=== PATIENT | female | born 1955 | race Caucasian/White ===

== ENCOUNTER → 2020-06-13 | Outpatient (CLI) | payer MEDICARE, BC | END | disposition home or self-care (01) | LOC: CFH 10:16 | PROVIDERS: ATTEND Nurse Practitioner | DX: M85.88 Other specified disorders of bone density and structure, other site (principal); N95.9 Unspecified menopausal and perimenopausal disorder | CPT/HCPCS: 77080 ==

== ENCOUNTER → 2020-06-20 | Outpatient (CLI) | payer MEDICARE, BC | END | disposition home or self-care (01) | LOC: CFH 13:47 | PROVIDERS: ATTEND Nurse Practitioner | DX: N63.20 Unspecified lump in the left breast, unspecified quadrant (principal) | CPT/HCPCS: 76642; 77066; G0279 ==

== ENCOUNTER → 2020-07-17 | Outpatient (CLI) | payer MEDICARE, BC | END | disposition home or self-care (01) | LOC: CFH 14:22 | PROVIDERS: ATTEND Internal Medicine Cardiovascular Disease | DX: Z13.6 Encounter for screening for cardiovascular disorders (principal); I10 Essential (primary) hypertension; E78.2 Mixed hyperlipidemia | CPT/HCPCS: 75571; 93306 ==

== ENCOUNTER → 2020-11-14 | Outpatient (CLI) | payer MEDICARE, BC | END | disposition home or self-care (01) | LOC: EDSTATUS 10-22 15:00 → CFH 13:17 → EDSTATUS 13:45 | PROVIDERS: ATTEND Physical Medicine & Rehabilitation | DX: M51.17 Intervertebral disc disorders with radiculopathy, lumbosacral region (principal); M50.13 Cervical disc disorder with radiculopathy, cervicothoracic region; M60.9 Myositis, unspecified; M48.061 Spinal stenosis, lumbar region without neurogenic claudication; M48.02 Spinal stenosis, cervical region | CPT/HCPCS: 72141; 72148 ==

== ENCOUNTER 2021-01-04 14:02 | Emergency (ER) | payer MEDICARE, BC ==
[~2021-01-04] VITALS: Ht 160 cm; Wt 56.9 kg
[2021-01-04] MEDS ORDERED: ADENOSINE 6 MG/2 ML ONE ×2 (14:16→14:24)
--- NOTE | 2021-01-04 14:24 | NUR ---
PT WC'D TO ROOM 13 FOR C/O CP, DIZZINESS AND PT STATES SHE NOTICED ON HER APPLE WATCH THAT HER HR WAS IN THE 180'S. PT STATES SHE HAS HAD THIS HAPPEN BEFORE BUT IT WENT AWAY ON IT'S OWN. PT STATES SX TODAY STARTED AT 1130. STATES "I WAS TYPING UP A CERTIFICATE AND MY HEART JUST STARTED RACING. I FELT DIZZY, NAUSEOUS AND HAD A HEADACHE". PT RESTING ON GURNEY. MONITORS APPLIED. PADS APPLIED. CRASH CART AT BEDSIDE. PIV INITIATED. ERP DR. BALBUENA AT BEDSIDE FOR EVAL.
[2021-01-04] MEDS ORDERED: SODIUM CHLORIDE FLUSH 10ML SYR IVF ONE (14:30)
[2021-01-04] MEDS ORDERED: ADENOSINE 6 MG/2 ML IVPush ONE (14:30)
--- NOTE | 2021-01-04 14:30 | NUR ---
ADENOSINE GIVEN W/ ERP DR. BALBUENA AT BEDSIDE. PT RESPONDED. HR NOW AT 95. PT STATES SHE FEELS GOOD.
[2021-01-04 14:34] LABS: BASOPHILS % (AUTO) 1 % (0-1); EOSINOPHILS % (AUTO) 1 % (1-7); LYMPHOCYTES % (AUTO) 35 % (22-44); MEAN PLATELET VOLUME 7.3 fL (7.4-10.4); MONOCYTES % (AUTO) 7 % (2-9); NEUTROPHILS % (AUTO) 55 % (42-75); PLATELET COUNT 227 x10^3/uL (130-400); RED BLOOD COUNT 4.39 x10^6/uL (3.82-5.3); RED CELL DISTRIBUTION WIDTH 14.6 % (9.6-15.2)
[2021-01-04 14:35] LABS: MD NO
[2021-01-04 14:47] LABS: ALANINE AMINOTRANSFERASE 55 U/L (12-78); ALBUMIN 3.7 g/dL (3.4-5.0); ANION GAP 6 mmol/L (5-15); CALCIUM 9.1 mg/dL (8.5-10.1); CHLORIDE 106 mmol/L (98-107)
[2021-01-04 14:52] LABS: ALKALINE PHOSPHATASE 72 U/L (45-117); BILIRUBIN,TOTAL 0.6 mg/dL (0.2-1.0); CREATININE 0.98 mg/dL (0.55-1.02); FREE T4 (FREE THYROXINE) 1.22 ng/dL (0.76-1.46); TOTAL PROTEIN 6.4 g/dL (6.4-8.2); TROPONIN I 0.031 ng/mL (0.000-0.045)
--- NOTE | 2021-01-04 15:05 | NUR ---
PT RESTING ON GURNEY. NADN. RODRIGUEZ.
[2021-01-04] MEDS ORDERED: SODIUM CHLORIDE 0.9% 1,000ML IVBOLUS ONE ×2 (15:30→16:00)
[2021-01-04 16:03] VITALS: BP 100/63
--- NOTE | 2021-01-04 16:03 | NUR ---
PT RESTING ON GURNEY. NADN. RODRIGUEZ.
== END 2021-01-04 16:46 | disposition home or self-care (01) ==
LOC: ED 16:38
DX: I47.1 Supraventricular tachycardia (principal); R42 Dizziness and giddiness; R51.9 Headache, unspecified; I10 Essential (primary) hypertension
CPT/HCPCS: 36415; 71045; 80053; 83605; 84439; 84443; 84484; 85025; 93005; 96361; 96374; 99285; J0153; J7030

== ENCOUNTER 2021-06-24 14:45 | Outpatient (CLI) | payer MEDICARE, BC | END 2021-06-24 23:59 | disposition home or self-care (01) | LOC: CFH 14:45 | PROVIDERS: ATTEND Physician Assistant | DX: Z12.31 Encounter for screening mammogram for malignant neoplasm of breast (principal) | CPT/HCPCS: 77063; 77067 ==